=== PATIENT | male | born 1970 | race Caucasian/White ===

== ENCOUNTER → 2021-08-20 10:15 | Outpatient (CLI) | payer OTHER, SELFPAY ==
--- NOTE | ~2021-08-20 | US_ITS ---
EXAMINATION: US abdomen complete EXAM DATE: 08/20/2021 10:37 INDICATION: Unspecified abdominal pain . TECHNIQUE: Multiple grayscale and Doppler images of the complete abdomen were obtained (by a technolo gist who performed the scan) and subsequently reviewed. There is no prior study for comparison. FINDINGS: The abdominal aorta is normal in caliber. Visualized portion IVC is patent. The pancreatic head a nd body are normal in appearance. The pancreatic tail is not visualized. The liver has normal echogenicity and contour. There are no focal liver lesions identified. There is no evidence of intrahepatic biliary duct dilation. Portal venous flow was seen in the hepatopedal , normal direction and has normal Doppler waveform. Common bile duct measures 4 mm, which is normal. The gallbladder wall is normal in thickness, with ex pected amount of distention. No sonographic evidence of pericholecystic fluid. There is no cholelit hiases. Technologist performing exam reports patient did not demonstrate sonographic Pan's sign. Please note that this sign is less reliable in patients who have received pain medication. Right kidney: There is normal contour and echogenicity. It measures 11.1 x 4.1 x 5.2 centimeters. There are no focal renal lesions identified. There is no hydronephrosis. Left kidney: There is normal contour and echogenicity. It measures 10.3 x 5.5 x 4.8 centimeters. T here are no focal renal lesions identified. There is no hydronephrosis. The spleen measures 9.4 centimeters and is morphologically normal. IMPRESSION: 1. Unremarkable complete abdominal ultrasound exam. Reviewed, dictated and finalized at location A.
== END ==
PROVIDERS: PCP Family Medicine; Visit Provider Family Medicine
DX: R10.9 Unspecified abdominal pain (principal)
CPT/HCPCS: 76700